=== PATIENT | female | born 1995 | race Caucasian/White ===

== ENCOUNTER 2017-07-25 22:29 | Emergency (ER) | payer OTHER ==
[~2017-07-25] VITALS: Ht 157.5 cm; Wt 68.3 kg
[~2017-07-25 22:29] MED LIST: AMOXICILLI400 MG/5 M PO
[2017-07-25] MEDS ORDERED: NYSTATIN-TRIAMC15 GM TP (23:53)
[2017-07-25] MEDS ORDERED: LMX 430 GM TP (23:53)
[2017-07-26 00:09] VITALS: BP 00/0
== END 2017-07-26 00:12 | disposition home or self-care (01) ==
LOC: EME 22:29
DX: B37.49 Other urogenital candidiasis (principal); F79 Unspecified intellectual disabilities; Z87.440 Personal history of urinary (tract) infections
CPT/HCPCS: 99281; 99284